=== PATIENT | male | born 1990 | race Caucasian/White ===

== ENCOUNTER 2017-03-21 16:34 | Emergency (ER) | payer BC ==
[2017-03-21 16:49] VITALS: BP 147/71
--- NOTE | 2017-03-21 17:12 | EDM.PDOC ---
ED HPI GENERAL MEDICAL PROBLEM - General Chief Complaint: Respiratory Problem Stated Complaint: POSSIBLE FLU Time Seen by Provider: 03/21/17 16:43 Source of Information: Reports: Patient History Limitations: Reports: No Limitations - History of Present Illness INITIAL COMMENTS - FREE TEXT/NARRATIVE: HISTORY AND PHYSICAL: History of present illness: Patient is a 26-year-old male who presents to the emergency room today for a medical screening. He states that his and daughter were recently diagnosed with influenza and he is concerned that he has been exposed. He denies any fever , chills, chest pain, shortness of breath, abdominal pain, nausea, vomiting or diarrhea/constipation. Has no systemic complaints. Does not received the influenza vaccine this year Review of systems: As per history of present illness and below otherwise all systems reviewed and negative. Past medical history: As per history of present illness and as reviewed below otherwise noncontributory. Surgical history: As per history of present illness and as reviewed below otherwise noncontributory. Social history: No reported history of drug or alcohol abuse. Family history: As per history of present illness and as reviewed below otherwise noncontributory. Physical exam: Gen.: Well-developed and well-nourished 26-year-old male. Alert and oriented. Nontoxic appearing and in no acute distress. HEENT: Atraumatic, normocephalic, pupils reactive, negative for conjunctival pallor or scleral icterus, mucous membranes moist, throat clear, neck supple, nontender, trachea midline. Lungs: Clear to auscultation, breath sounds equal bilaterally, chest nontender. Heart: S1S2, regular, negative for clicks, rubs, or JVD. Abdomen: Soft, nondistended, nontender. Negative for masses or hepatosplenomegaly. Negative for costovertebral tenderness. Pelvis: Stable nontender. Genitourinary: Deferred. Rectal: Deferred. Extremities: Atraumatic, negative for cords or calf pain. Neurovascular unremarkable. Neuro: Awake, alert, oriented. Cranial nerves II through XII unremarkable. Cerebellum unremarkable. Motor and sensory unremarkable throughout. Exam nonfocal. Diagnostics: Influenza screen Therapeutics: [] Impression: Encounter for medical screening Influenza exposure Plan: 1. Tested NEGATIVE for influenza. If you want, you may take the Tamiflu as directed. 2. He may use Tylenol and/or ibuprofen as needed for pain and fever management. Encourage fluids to prevent dehydration. Rest. 3. Follow-up with your primary care provider as needed. Return to the ED as needed and as discussed. Definitive disposition and diagnosis as appropriate pending reevaluation and review of above. Associated Symptoms: Reports: No Other Symptoms - Related Data Allergies Allergy/AdvReac Type Severity Reaction Status Date / Time acetaminophen [From Tylenol] AdvReac Vomiting Verified 03/21/17 16:46 Home Meds: Home Meds . [No Known Home Meds] 01/08/14 [History] Past Medical History - Past Health History Medical/Surgical History: Denies Medical/Surgical History HEENT History: Reports: None Cardiovascular History: Reports: None Respiratory History: Reports: Other (See Below) Other Respiratory History: pneumonia. influenza Musculoskeletal History: Reports: None Other Musculoskeletal History: back pain Neurological History: Reports: None Psychiatric History: Reports: None - Infectious Disease History Infectious Disease History: Reports: None - Past Surgical History HEENT Surgical History: Reports: None Social & Family History - Family History Family Medical History: Noncontributory - Tobacco Use Smoking Status *Q: Never Smoker Second Hand Smoke Exposure: No - Caffeine Use Caffeine Use: Reports: None - Alcohol Use Days Per Week of Alcohol Use: 0 - Recreational Drug Use Recreational Drug Use: No ED ROS GENERAL - Review of Systems Review Of Systems: ROS reveals no pertinent complaints other than HPI. ED EXAM, GENERAL - Physical Exam Exam: See Below (See dictation) Course - Vital Signs Last Recorded V/S: Last Vital Signs Temp 97.4 F 03/21/17 16:46 Pulse 70 03/21/17 16:46 Resp 18 03/21/17 16:46 BP 147/71 H 03/21/17 16:46 Pulse Ox 97 03/21/17 16:46 Departure - Departure Time of Disposition: 17:42 Disposition: Home, Self-Care 01 Clinical Impression: Encounter for medical screening examination, Exposure to influenza - Discharge Information Referrals: PCP,None [Primary Care Provider] - Forms: ED Department Discharge Additional Instructions: My general discharge The following information is given to patients seen in the emergency department who are being discharged to home. This information is to outline your options for follow-up care. We provide all patients seen in our emergency department with a follow-up referral. The need for follow-up, as well as the timing and circumstances, are variable depending upon the specifics of your emergency department visit. If you don't have a primary care physician on staff, we will provide you with a referral. We always advise you to contact your personal physician following an emergency department visit to inform them of the circumstance of the visit and for follow-up with them and/or the need for any referrals to a consulting specialist. The emergency department will also refer you to a specialist when appropriate. This referral assures that you have the opportunity for follow-up care with a specialist. All of these measure are taken in an effort to provide you with optimal care, which includes your follow-up. Under all circumstances we always encourage you to contact your private physician who remains a resource for coordinating your care. When calling for follow-up care, please make the office aware that this follow-up is from your recent emergency room visit. If for any reason you are refused follow-up, please contact the [facility] Emergency Department at and asked to speak to the emergency department charge nurse. [facility] [address] [place] [id number] 1. Tested NEGATIVE for influenza. If you want, you may take the Tamiflu as directed. 2. You may use Tylenol and/or ibuprofen as needed for pain and fever management. Encourage fluids to prevent dehydration. Rest. 3. Follow-up with your primary care provider as needed. Return to the ED as needed and as discussed.
== END 2017-03-21 17:58 | disposition home or self-care (01) ==
LOC: MW.ED 16:34
DX: Z20.828 Contact with and (suspected) exposure to other viral communicable diseases (principal); Z88.6 Allergy status to analgesic agent
CPT/HCPCS: 87804; 99282; 99283

== ENCOUNTER 2017-03-23 21:52 | Emergency (ER) | payer BC ==
--- NOTE | 2017-03-23 22:17 | EDM.PDOC ---
ED HPI GENERAL MEDICAL PROBLEM - General Chief Complaint: General Stated Complaint: CHEST HURTS Time Seen by Provider: 03/23/17 22:07 - History of Present Illness INITIAL COMMENTS - FREE TEXT/NARRATIVE: HISTORY AND PHYSICAL: History of present illness: The patient is a healthy 26-year-old male who presents with complaints of occasional cough and mild congestion and would like to be checked for pneumonia. Patient has family members at home that were seen here in our emergency department several days ago and tested positive for influenza. The patient was seen here 2 days ago for concern about influenza exposure and was tested and was negative. The patient denies smoking history or any chronic pulmonary problems but said he had pneumonia last year and is concerned is going to get it again. 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 Patient denies any specific chest pain shortness of breath on my evaluation. Patient says that he has had the symptoms for the last several days. Review of systems: As per history of present illness and below otherwise all systems reviewed and negative. Past medical history: As per history of present illness and as reviewed below otherwise noncontributory. Surgical history: As per history of present illness and as reviewed below otherwise noncontributory. Social history: No reported history of drug or alcohol abuse. Family history: As per history of present illness and as reviewed below otherwise noncontributory. Physical exam: Gen.: Well-developed well-nourished man who is nontoxic and vital signs of been reviewed by me HEENT: Atraumatic, normocephalic, pupils reactive, negative for conjunctival pallor or scleral icterus, mucous membranes moist, throat clear, neck supple, nontender, trachea midline. Lungs: Clear to auscultation, breath sounds equal bilaterally, chest nontender. No worker breathing wheezing or stridor Heart: S1S2, regular rate and rhythm no overt murmurs Abdomen: Soft, nondistended, nontender. NABS Pelvis: Deferred Genitourinary: Deferred. Rectal: Deferred. Extremities: Atraumatic, negative for cords or calf pain. Neurovascular unremarkable. Neuro: Awake, alert, oriented. Cranial nerves II through XII unremarkable. Cerebellum unremarkable. Motor and sensory unremarkable throughout. Exam nonfocal. Diagnostics: Chest x-ray Therapeutics: [] Impression: Cough/Medical screening exam/worried well Definitive disposition and diagnosis as appropriate pending reevaluation and review of above. - Related Data Allergies Allergy/AdvReac Type Severity Reaction Status Date / Time No Known Allergies Allergy Verified 03/23/17 22:07 Home Meds: Home Meds . [No Known Home Meds] 01/08/14 [History] Past Medical History - Past Health History Medical/Surgical History: Denies Medical/Surgical History HEENT History: Reports: None Cardiovascular History: Reports: None Respiratory History: Reports: Other (See Below) Other Respiratory History: pneumonia. influenza Musculoskeletal History: Reports: None Other Musculoskeletal History: back pain Neurological History: Reports: None Psychiatric History: Reports: None - Infectious Disease History Infectious Disease History: Reports: None - Past Surgical History HEENT Surgical History: Reports: None Social & Family History - Family History Family Medical History: Noncontributory - Tobacco Use Smoking Status *Q: Never Smoker Second Hand Smoke Exposure: No - Caffeine Use Caffeine Use: Reports: None - Alcohol Use Days Per Week of Alcohol Use: 0 - Recreational Drug Use Recreational Drug Use: No ED ROS GENERAL - Review of Systems Review Of Systems: ROS reveals no pertinent complaints other than HPI. ED EXAM, GENERAL - Physical Exam Exam: See Below (See dictation) Course - Vital Signs Last Recorded V/S: Last Vital Signs Temp 36.6 C 03/23/17 21:52 Pulse 91 03/23/17 21:52 Resp 18 03/23/17 21:52 BP 134/86 03/23/17 21:52 Pulse Ox 95 03/23/17 21:52 - Orders/Labs/Meds Orders: Active Orders 24 hr Category Date Time Status Chest 2V [CR] Stat Exams 03/23/17 22:14 Taken Departure - Departure Time of Disposition: 23:11 Disposition: Home, Self-Care 01 Condition: Good Clinical Impression: Physically well but worried, Cough - Discharge Information Referrals: Fermin Vasques MD [Primary Care Provider] - Forms: ED Department Discharge Additional Instructions: The following information is given to patients seen in the emergency department who are being discharged to home. This information is to outline your options for follow-up care. We provide all patients seen in our emergency department with a follow-up referral. The need for follow-up, as well as the timing and circumstances, are variable depending upon the specifics of your emergency department visit. If you don't have a primary care physician on staff, we will provide you with a referral. We always advise you to contact your personal physician following an emergency department visit to inform them of the circumstance of the visit and for follow-up with them and/or the need for any referrals to a consulting specialist. The emergency department will also refer you to a specialist when appropriate. This referral assures that you have the opportunity for followup care with a specialist. All of these measure are taken in an effort to provide you with optimal care, which includes your followup. Under all circumstances we always encourage you to contact your private physician who remains a resource for coordinating your care. When calling for followup care, please make the office aware that this follow-up is from your recent emergency room visit. If for any reason you are refused follow-up, please contact the [facility] emergency department at and ask to speak to the emergency department charge nurse. [facility] Primary care- Internal [place] [address] Please contact your provider in the clinic or one of the other providers for follow-up visit and reevaluation. Push hydration rest and use [id number] medications as you choose for any symptoms that may develop. Return to ER as needed and as discussed. - My Orders Last 24 Hours: My Active Orders 03/23/17 22:14 Chest 2V [CR] Stat - Assessment/Plan Last 24 Hours: My Active Orders 03/23/17 22:14 Chest 2V [CR] Stat
[2017-03-23 23:21] VITALS: BP 118/62
--- NOTE | 2017-03-24 09:47 | CR ---
EXAM DATE: 03/23/17 PATIENT'S AGE: 26 Patient: NATALIA MENON Facility: [place], [place] Site . Site : 1990 Study: XRay Chest [id number]/6/2018 10:52:22 PM Ordering Physician: María Cueva Final Report: INDICATIONS: Chest pain. History of pneumonia. TECHNIQUE: Chest 2 view. COMPARISON: Chest radiograph February 26, 2014. FINDINGS: No pneumothorax, pleural effusion or airspace consolidation. Cardiac and mediastinal contours are within normal limits. Upper abdomen and osseous structures show no acute abnormality. IMPRESSION: No evidence of acute cardiopulmonary disease. Dictated by Alok Franks MD @ 03/23/2017 11:07:02 PM Dictated by: Alok Franks MD @ 03/23/2017 23:07:07 (Electronic Signature) Report Signed by Proxy. [facility]ITAL[facility]
== END 2017-03-23 23:20 | disposition home or self-care (01) ==
LOC: MW.ED 21:52
DX: R05 Cough (principal)
CPT/HCPCS: 71046; 71046-26; 99282; 99283

== ENCOUNTER 2019-04-05 08:19 | Emergency (ER) | payer SELFPAY ==
[2019-04-05] MEDS ORDERED: Acetaminophen 325 MG Tab PO ONE (08:53)
--- NOTE | 2019-04-05 09:01 | EDM.PDOC ---
ED [facility] GENERAL MEDICAL PROBLEM - General Chief Complaint: ENT Problem Stated Complaint: COUGH Time Seen by Provider: 04/05/19 09:00 Source of Information: Reports: Patient History Limitations: Reports: No Limitations - History of Present Illness INITIAL COMMENTS - FREE TEXT/NARRATIVE: Patient is a 28-year-old male with no past medical history presenting with a chief complaint of cough. Patient reports a cough is been for 1 week. Patient states when he started he initially had sore throat and nasal congestion however the symptoms subsided. The cough is continued. Patient denies any chest pain or shortness of breath. Patient reports having intermittent fevers. Patient denies any nausea, vomiting, recent travel outside of the country. Nothing makes symptoms better or worse. Patient is taking ibuprofen for symptoms. Pmhx: None Pshx: None Family Hx: noncontributory Smoking history? no Etoh use? none Drug use? none In addition to that documented in the HPI above, the additional ROS was obtained : Constitutional: Denies fevers or chills Eyes: Denies vision changes ENMT: Denies sore throat CV: Denies chest pain Resp: Denies SOB GI: Denies vomiting or diarrhea : Denies painful urination MSK: Denies recent trauma Skin: Denies new rashes Neuro: Denies new numbness or tingling or weakness Endocrine: Denies unexpected weight loss Heme: Denies bleeding disorders I have reviewed the triage vital signs Const: Well nourished, well developed, appears stated age Eyes: PERRL, no conjunctival injection HENT: NCAT, Neck supple without meningismus CV: RRR, Warm, well-perfused extremities RESP: CTAB, Unlabored respiratory effort GI: soft, non-tender, non-distended, no masses MSK: No gross deformities appreciated Skin: Warm, dry. No rashes Neuro: Alert, child protection specialist II-XII grossly intact. Sensation and motor function of extremities grossly intact. Psych: Appropriate mood and affect Assessment and plan: Patient is 28-year-old male presenting with cough. Patient has normal oxygen saturation. Patient's heart rate improved to 104 at the time of discharge. Clinical impression is viral upper respiratory infection. Patient given instructions with return precautions and supportive care. Throat Pain Score (Numeric/FACES): 4 - Related Data Allergies Allergy/AdvReac Type Severity Reaction Status Date / Time No Known Allergies Allergy Verified 04/05/19 08:31 Home Meds: Home Meds Benzonatate [Tessalon Perle] 100 mg PO TID #30 capsule 04/05/19 [Rx] Past Medical History - Past Health History Medical/Surgical History: Denies Medical/Surgical History HEENT History: Reports: None Cardiovascular History: Reports: None Respiratory History: Reports: Other (See Below) Other Respiratory History: pneumonia every year Musculoskeletal History: Reports: None Other Musculoskeletal History: back pain Neurological History: Reports: None Psychiatric History: Reports: None - Infectious Disease History Infectious Disease History: Reports: None - Past Surgical History HEENT Surgical History: Reports: None Social & Family History - Family History Family Medical History: Noncontributory - Tobacco Use Smoking Status *Q: Never Smoker - Caffeine Use Caffeine Use: Reports: Coffee - Recreational Drug Use Recreational Drug Use: No ED ROS ENT - Review of Systems Review Of Systems: See Below ED EXAM, ENT - Physical Exam Exam: See Below Course - Vital Signs Last Recorded V/S: Last Vital Signs Temp 37.6 C 04/05/19 10:25 Pulse 114 H 04/05/19 10:25 Resp 15 04/05/19 08:32 BP 127/73 04/05/19 10:25 Pulse Ox 96 04/05/19 10:25 - Orders/Labs/Meds Meds: Medications Discontinued Medications Generic Name Dose Route Start Last Admin Trade Name Annamaria PRN Reason Stop Dose Admin Acetaminophen 650 mg 04/05/19 08:53 04/05/19 09:06 Tylenol PO 04/05/19 08:54 650 mg NOW ONE Administration Departure - Departure Time of Disposition: 10:22 Disposition: Home, Self-Care 01 Clinical Impression: URI (upper respiratory infection) - Discharge Information Prescriptions: Benzonatate [Tessalon Perle] 100 mg PO TID #30 capsule Instructions: Viral Respiratory Infection Referrals: PCP,None [Primary Care Provider] - Forms: ED Department Discharge Additional Instructions: The following information is given to patients seen in the emergency department who are being discharged to home. This information is to outline your options for follow-up care. We provide all patients seen in our emergency department with a follow-up referral. The need for follow-up, as well as the timing and circumstances, are variable depending upon the specifics of your emergency department visit. If you don't have a primary care physician on staff, we will provide you with a referral. We always advise you to contact your personal physician following an emergency department visit to inform them of the circumstance of the visit and for follow-up with them and/or the need for any referrals to a consulting specialist. The emergency department will also refer you to a specialist when appropriate. This referral assures that you have the opportunity for follow-up care with a specialist. All of these measure are taken in an effort to provide you with optimal care, which includes your follow-up. Under all circumstances we always encourage you to contact your private physician who remains a resource for coordinating your care. When calling for follow-up care, please make the office aware that this follow-up is from your recent emergency room visit. If for any reason you are refused follow-up, please contact the [facility] Emergency Department at and asked to speak to the emergency department charge nurse. Sepsis Event Note - Evaluation Sepsis Screening Result: No Definite Risk - Focused Exam Vital Signs: Vital Signs Temp Pulse Resp BP Pulse Ox 04/05/19 10:25 37.6 C 114 H 127/73 96 04/05/19 08:32 37.2 C 111 H 15 129/76 96 Date Exam was Performed: 04/05/19 Time Exam was Performed: 10:48
--- NOTE | 2019-04-05 09:58 | CR ---
Chest: 2 views of the chest were obtained. Comparison: Prior chest x-ray of 03/23/17. Heart size and mediastinum are normal. Lungs are clear with no acute parenchymal change. Bony structures are unremarkable. Impression: 1. Nothing acute is appreciated on 2 view chest x-ray. Diagnostic code #1 This report was dictated in [place] Standard Time
[2019-04-05 10:56] VITALS: BP 123/73; PULSE 99
== END 2019-04-05 10:56 | disposition home or self-care (01) ==
LOC: MW.ED 08:19
DX: J06.9 Acute upper respiratory infection, unspecified (principal)
CPT/HCPCS: 71046; 99283; A9270